=== PATIENT | female | born 1990 | race Asian ===

== ENCOUNTER 2016-03-27 12:49 | Outpatient (CLI) | payer BC ==
[~2016-03-27] VITALS: Ht 149.9 cm; Wt 53.5 kg
[2016-03-27 13:18] VITALS: BP 103/71; RESP 16; Ht 149.9 cm; Wt 53.5 kg
[2016-03-27 14:56] LABS: ADD UMIC YES; URINE BILIRUBIN (Dip) NEGATIVE (NEGATIVE); URINE BLOOD (Dip) 1+ (NEGATIVE); URINE COLOR LT. YELLOW (YELLOW); URINE GLUCOSE (Dip) NEGATIVE (NEGATIVE); URINE KETONES (Dip) NEGATIVE (NEGATIVE); URINE LEUKOCYTE ESTERASE (Dip) TRACE (NEGATIVE); URINE NITRITE (Dip) NEGATIVE (NEGATIVE); URINE TOTAL PROTEIN (Dip) NEGATIVE (NEGATIVE); URINE UROBILINOGEN (Dip) 0.2 E.U./dL (0.1-1.0)
--- NOTE | 2016-03-27 15:03 | PN ---
Date/Time of Note Date/Time of Note DATE: 03/27/16 TIME: 14:59 OB Subjective Subjective Subjective 25 Y.O AT 34W1D WITH PELVIC PAIN WITH UTERINE CONTRACION OB Objective Objective Objective EFM REACTIVE STRIP WITH OCC MILD U.C OB Assessment/Plan Reason for admission: labor Other Assessment: IUP 34W1D R/O PTL Other plan: U/A URINE CULTURE AND SENSITIVITIES ORAL HYDRATION IF NOT WORKING IV HYDRATION ERIN JACKSON MD Mar 27, 2016 15:03
[2016-03-27 15:09] LABS: BACTERIA,URINE FEW; SQUAMOUS EPITHELIAL CELL,UR MODERATE; URINE RBCS 0-2 /HPF ([, 0])
[2016-03-27] MEDS ORDERED: LACTATED RINGER'S 500 ML IV ONE (15:30)
[2016-03-27] MEDS ORDERED: CEFTRIAXONE 2 GM/50 ML (PMX) 50 ML IVPB ONE (15:30)
== END 2016-03-27 17:41 | disposition home or self-care (01) ==
LOC: OBT 12:49 → L-D 12:50 → OBT 17:41
PROVIDERS: ATTEND Obstetrics & Gynecology
DX: O60.03 Preterm labor without delivery, third trimester (principal); R10.2 Pelvic and perineal pain; Z3A.34 34 weeks gestation of pregnancy
CPT/HCPCS: 36415; 81001; 87086; 96360; 96366; J0696; J7120; Z7500; 81003; G0463

== ENCOUNTER 2016-04-02 12:58 | Outpatient (CLI) | payer BC ==
[~2016-04-02] VITALS: Ht 152.4 cm; Wt 56.1 kg
--- NOTE | 2016-04-02 13:45 | RADRPT ---
PROCEDURE: US OB. CLINICAL INDICATION: IUGR TECHNIQUE: Multiple sonographic images of the pelvis were obtained. Transabdominal imaging only w as performed. The images were reviewed on a PACS workstation. COMPARISON: No prior studies are available for comparison. FINDINGS: There is a single viable intrauterine gestation. Cardiac activity is present with 146 beats per min andres. There is a cephalic presentation. Measurements were made in order to determine age. The results are as follows: BPD = 8.30 cm HC = 30.77 cm AC = 30.08 cm FL = 6.32 cm Gestational age is 33 weeks 4 days and ALEKS is 05/17/2016 by ultrasound criteria. Gestational age is 35 weeks 0 days and ALEKS is 05/07/2016 by LMP. EFW = 2239 g +/- 336 g (14 %). The placenta is anterior. There is no evidence for an abruption or placenta previa. IMPRESSION: 1. Single live intrauterine gestation of approximately 33 weeks 4 days by ultrasound criteria. RPTAT: EE .Tony Joseph MD, Date Time Electronically viewed and signed by .Tony Joseph MD, on 04/02/2016 13:45 .R/
--- NOTE | 2016-04-02 13:46 | RADRPT ---
PROCEDURE: OB ultrasound for biophysical profile CLINICAL INDICATION: IUGR. Biophysical profile. . TECHNIQUE: Multiple sonographic images of the pelvis were obtained. Transabdominal view of the gr avid uterus are available for review. The images were reviewed on a PACS workstation. COMPARISON: None FINDINGS: breathing movement = 2/2 tone = 2/2 motion = 2/2 ZAKIYA = 2/2 ZAKIYA = 10.5 cm Single intrauterine gestation is identified in cephalic position. heart rate is 157 bpm. Plac enta is anterior without evidence for abruption or previa. IMPRESSION: 1. Single live intrauterine gestation. 2. Biophysical profile = 8. 3. ZAKIYA = 10.5 cm. RPTAT: EE .Tony Joseph MD, Date Time Electronically viewed and signed by .Tony Joseph MD, on 04/02/2016 13:46 .R/
[2016-04-02 13:49] VITALS: Ht 152.4 cm; Wt 56.1 kg
[2016-04-02] MEDS ORDERED: PRENAT PO (13:50)
--- NOTE | 2016-04-02 17:51 | CONS ---
DATE OF ADMISSION: 04/02/2016 DATE OF CONSULTATION: 04/02/2016 TYPE OF CONSULTATION: Triage consultation. HISTORY OF PRESENT ILLNESS: This patient is a 25-year-old 2, para 1, with EDC of 05/07/2016 , which makes her about 35 weeks today and she was sent in because of suspicion of IUGR [facility]. PHYSICAL EXAMINATION: GENERAL: She is a well-developed, well-nourished lady, around 35 weeks. EARS, NOSE AND THROAT: Normal. NECK: Normal. LUNGS: Clear. ABDOMEN: Soft. Fundus about 34 cm. She does have occasional contractions. heart tone at t his time is normal. Baby appears to be in vertex presentation. EXTREMITIES: Normal. No edema. Knee jerk reflexes are normal. PELVIC: About half an hour ago, her cervix was closed and uneffaced. Her ultrasound study reveale d that her biophysical profile was 8/8. Her ZAKIYA 10.5 cm. Her NST as I mentioned, was reactive. He r estimated weight was 2239 grams, which makes her 14th percentile. Her vital signs were norm al. Blood pressure 108/60, pulse rate was 85 and temperature was normal. With this finding, the pat ient will be discharged home to come back on a biweekly basis for further monitoring regarding her I UGR. Dictated By: LASHANDA TAPIA MD HF/NTS Conf#: [id number] DID#: [id number]
== END 2016-04-02 15:20 | disposition home or self-care (01) ==
LOC: L-D 12:58 → OBT 12:58
PROVIDERS: ATTEND Obstetrics & Gynecology
DX: O36.5913 Maternal care for other known or suspected poor fetal growth, first trimester, fetus 3 (principal); Z3A.35 35 weeks gestation of pregnancy
CPT/HCPCS: 76815; 76818; G0463

== ENCOUNTER 2016-04-06 11:38 | Outpatient (CLI) | payer BC ==
[~2016-04-06 11:38] MED LIST: PRENAT PO
[2016-04-06 11:56] VITALS: BP 92/58; PULSE 100; RESP 19
[2016-04-06 12:21] LABS: URINE BLOOD (Dip) POC Trace-lysed (NEGATIVE)
--- NOTE | 2016-04-06 12:21 | RADRPT ---
PROCEDURE: OB ultrasound for biophysical profile CLINICAL INDICATION: IUGR. TECHNIQUE: Multiple sonographic images of the pelvis were obtained. Transabdominal view of the gr avid uterus are available for review. The images were reviewed on a PACS workstation. COMPARISON: 04/02/2016. FINDINGS: breathing movement = 2/2 tone = 2/2 motion = 2/2 Quantitative amniotic fluid volume = 2/2 ZAKIYA = 11.3 cm Single live intrauterine with cardiac activity at 150 beats per minute. There is a anterior placenta without previa. IMPRESSION: 1. Single living intrauterine gestation in cephalic position. 2. Biophysical profile = 8/8. 3. ZAKIYA = 11.3 cm. RPTAT: [facility] Physician Tee Date Time Electronically viewed and signed by Physician Tee on 04/06/2016 12:20 /
--- NOTE | 2016-04-06 13:32 | PN ---
Date/Time of Note Date/Time of Note DATE: 04/06/16 TIME: 13:27 OB Subjective Subjective Subjective 25 y.o EDC 05/07/16 HERE FOR NATEPARTUM TEST FOR IUGR ALSO C/O LEAKING FLUID OB Objective Objective Objective EFM MINOR IRREGULAR UTERINE ACTIVITIES REACTIVE BPP 10/20 ZAKIYA 11.2 ROM PLUS NEG U/A SENT VE CLOSE LONG AND HIGH OB Assessment/Plan Other Assessment: IUP 35W5D R/O IUGR NO PROM Other plan: F/U IN 3-4 DAYS FOR NST BPP EFW SENT HOME WITH ROUTINE LABOR INSTRUCTIONS ERIN JACKSON MD Apr 06, 2016 13:31
[2016-04-06 13:42] LABS: ADD UMIC YES; URINE BILIRUBIN (Dip) NEGATIVE (NEGATIVE); URINE BLOOD (Dip) TRACE (NEGATIVE); URINE COLOR LT. YELLOW (YELLOW); URINE GLUCOSE (Dip) NEGATIVE (NEGATIVE); URINE KETONES (Dip) NEGATIVE (NEGATIVE); URINE LEUKOCYTE ESTERASE (Dip) 1+ (NEGATIVE); URINE NITRITE (Dip) NEGATIVE (NEGATIVE); URINE TOTAL PROTEIN (Dip) NEGATIVE (NEGATIVE); URINE UROBILINOGEN (Dip) 0.2 E.U./dL (0.1-1.0)
[2016-04-06 14:09] LABS: BACTERIA,URINE FEW; URINE RBCS 0-2 /HPF (0)
== END 2016-04-06 13:45 | disposition home or self-care (01) ==
LOC: OBT 11:38 → L-D 11:39 → OBT 13:45
PROVIDERS: ATTEND Obstetrics & Gynecology
DX: O47.03 False labor before 37 completed weeks of gestation, third trimester (principal); Z3A.35 35 weeks gestation of pregnancy
CPT/HCPCS: 76818; 81001; 84112; Z7500; 81003; G0463

== ENCOUNTER 2016-04-13 11:13 | Inpatient (IN) | payer BC ==
[~2016-04-13] VITALS: Ht 152.4 cm; Wt 54.5 kg
[2016-04-13] MEDS ORDERED: LACTATED RINGER'S 1,000 ML IV PRN (11:30)
[2016-04-13 11:53] VITALS: Ht 152.4 cm; Wt 54.5 kg
[2016-04-13] MEDS ORDERED: BUTORPHANOL 2 MG INJ IV PRN (12:00)
[2016-04-13] MEDS ORDERED: METHYLERGONOVINE 0.2 MG INJ IM PRN (12:00)
[2016-04-13] MEDS ORDERED: OXYTOCIN 30 UNITS/LR 500 ML IV SCH ×2 (12:00)
[2016-04-13] MEDS ORDERED: IBUPROFEN 600 MG TAB PO PRN (12:00)
[2016-04-13] MEDS ORDERED: LIDOCAINE 1% (MPF) 30 ML INJ INJ PRN (12:00)
[2016-04-13] MEDS ORDERED: AMPICILLIN 2 GM/NS (PMX) 100 ML IV ONE (12:00)
[2016-04-13] MEDS ORDERED: OXYTOCIN 30 UNITS/LR 500 ML IV PRN (12:00)
[2016-04-13] MEDS ORDERED: CARBOPROST 250 MCG INJ IM PRN (12:00)
[2016-04-13] MEDS ORDERED: MISOPROSTOL 200 MCG TAB PR PRN (12:00)
[2016-04-13 12:17] LABS: BASOPHILS % 0.4 % (0.0-2.0); EOSINOPHILS # 0.2 10^3/ul (0.0-0.5); EOSINOPHILS % 1.5 % (0.0-7.0); HEMATOCRIT 32.5 % (37.0-47.0); HEMOGLOBIN 10.7 g/dl (12.0-16.0); LYMPHOCYTES % 19.6 % (15.0-51.0); MEAN CORPUSCULAR HEMOGLOBIN 25.5 pg (29.0-33.0); MEAN CORPUSCULAR VOLUME 77.3 fl (82.0-101.0); MEAN PLATELET VOLUME 10.5 fl (7.4-10.4); MONOCYTE # 0.9 10^3/ul (0.3-0.9); MONOCYTES % 8.6 % (0.0-11.0); NEUTROPHIL # 7.2 10^3/ul (1.6-7.5); NEUTROPHILS % 69.9 % (39.0-77.0); PLATELET COUNT 202 10^3/UL (140-440); RED CELL DISTRIBUTION WIDTH 15.8 % (11.5-14.5); UNCORRECTED WBC 10.3 10^3/ul (4.8-10.8); WHITE BLOOD COUNT 10.3 10^3/ul (4.8-10.8)
[2016-04-13 12:18] LABS: CONDITION 1; LH ANALYZER COMMENTS 1
[2016-04-13] MEDS: LACTATED RINGER'S 1,000 ML IV SCH ×2 (12:21→19:45)
[2016-04-13 12:35] LABS: INR 0.87; PROTIME 11.8 Sec (12.2-14.2); PT RATIO 0.9
[2016-04-13] MEDS ORDERED: DINOPROSTONE 10 MG VAG SUPP VAG ONE (14:30)
[2016-04-13] MEDS: AMPICILLIN 1 GM/NS (PMX) 50 ML IV SCH ×3 (16:45→23:44)
--- NOTE | 2016-04-14 02:02 | HP ---
Date/Time of Note Date/Time of Note DATE: 04/14/16 TIME: 01:54 OB - History Hx of Present Free Text/Dictation 25 y.o at 36w6d was admitted for induction of labor for IUGR ,monitored closely with MFM who recommande d for delivery due to size was 4% with oligohydoamnios. admitted for induction of labor Chief Complaint: for induction Estimated Due Date: Apr 28, 2016 : 2 Para: 1 Spontaneous : 0 Therapeutic : 0 Care: Good Care Obstetrical Complications: Other (IUGR) Medical Complications: Musculoskeletal Past Family/Social History * Past Medical, Surgical, Family and Obstetric Histories reviewed from chart. Rubella: immune RPR/VDRL: Negative GBS Status: Negative OB Admission Exam Physical Exam HEENT: WNL Heart: Rhythm Normal Lungs: Clear, Equal Abdomen: WNL Extremities: Normal Reflexes: Normal Cervical Dilatation: Fingertip Effacement: 0% Station: -3 Membranes: Intact Amniotic Fluid: Unevaluable Heart Rate: 130's Accelerations: No Accelerations Decelerations: No Decelerations Varibility: Moderate Contractions on Admission: None Last 72 hours Lab Results CBC & BMP 04/13/16 11:30 OB Assessment/Plan Other Assessment: IUGR 36W6D OLIGOHYDRAMNIOS Plan: Induction Induction Method: per Misoprostol Protocol ERIN JACKSON MD Apr 14, 2016 02:01
--- NOTE | 2016-04-14 02:05 | LDN ---
Date/Time of Note Date/Time of Note DATE: 04/14/16 TIME: 02:02 Delivery Summary NORMAL VAGINAL DELIVERY RAPIDLY DELIVERED EVEN LABORIST MISSSED Placenta Delivered: Spontaneously Meconium: none Perineum intact?: No Perineal laceration: 2 Perineal laceration repair: REPAIRED Anesthesia type: Local Estimated blood loss: 250 Sponge & Needle done & correct: Yes All needle counts correct: Yes Any foreign bodies felt in the: No Problems: Infant Delivery Information Sex Sex: male Apgars 1 Minute: 8 5 Minute: 9 Suctioning Nose & mouth suctioned at alva: Yes Delee suction performed: No Umbilical Cord Umbilical cord with: 3 Vessels Cord presentations: no nuchal cord Cord Blood was obtained: Yes Mother & Baby Disposition Disposition Mom & Baby to Maternity; Good: Yes Mom transferred to: Other Baby to NICU: No () ERIN JACKSON MD Apr 14, 2016 02:05
[2016-04-14] MEDS ORDERED: METHYLERGONOVINE 0.2 MG INJ IM PRN (02:30)
[2016-04-14] MEDS ORDERED: OXYTOCIN 30 UNITS/LR 500 ML IV PRN (02:30)
[2016-04-14] MEDS ORDERED: WITCH HAZEL/GLYCERIN PAD PR PRN (02:30)
[2016-04-14] MEDS ORDERED: LANOLIN 7 GM TUBE TOP PRN (02:30)
[2016-04-14] MEDS ORDERED: OXYCODONE/ASPIRIN (4.88/325) TAB PO PRN ×2 (02:30)
[2016-04-14] MEDS ORDERED: MISOPROSTOL 200 MCG TAB PR PRN (02:30)
[2016-04-14] MEDS ORDERED: ZOLPIDEM 5 MG TAB PO PRN (02:30)
[2016-04-14] MEDS ORDERED: BENZOCAINE 20% 56 ML SPRAY TOP PRN (02:30)
[2016-04-14] MEDS ORDERED: CARBOPROST 250 MCG INJ IM PRN (02:30)
[2016-04-14 04:00] VITALS: BP_SYST 111; BP_SYST 121; BP_DIAS 71; PULSE 75; RESP 18
[2016-04-14] MEDS: IBUPROFEN 600 MG TAB PO SCH ×3 (05:50→18:18)
[2016-04-14 07:45] VITALS: BP 87/53; PULSE 63; RESP 18
[2016-04-14] MEDS: SENNA/DOCUSATE NA (8.6MG/50MG) TAB PO SCH ×2 (09:24→21:43)
[2016-04-14 12:45] VITALS: BP 92/59; PULSE 88; RESP 16
[2016-04-14 15:30] VITALS: BP 97/55; PULSE 85; RESP 16
[2016-04-14 20:00] VITALS: BP 102/66; PULSE 77; RESP 0
[2016-04-15] MEDS: IBUPROFEN 600 MG TAB PO SCH ×5 (00:58→23:23)
[2016-04-15 04:00] VITALS: BP 93/57; RESP 18
[2016-04-15 07:57] LABS: BASOPHILS % 0.3 % (0.0-2.0); EOSINOPHILS # 0.2 10^3/ul (0.0-0.5); EOSINOPHILS % 1.4 % (0.0-7.0); HEMATOCRIT 25.8 % (37.0-47.0); HEMOGLOBIN 8.3 g/dl (12.0-16.0); LYMPHOCYTES # 2.3 10^3/ul (0.8-2.9); LYMPHOCYTES % 17.9 % (15.0-51.0); MEAN CORPUSCULAR HEMOGLOBIN 25.1 pg (29.0-33.0); MEAN CORPUSCULAR HGB CONC 32.2 g/dl (32.0-37.0); MEAN CORPUSCULAR VOLUME 77.8 fl (82.0-101.0); MEAN PLATELET VOLUME 10.4 fl (7.4-10.4); MONOCYTES % 8.1 % (0.0-11.0); NEUTROPHIL # 9.1 10^3/ul (1.6-7.5); NEUTROPHILS % 72.3 % (39.0-77.0); PLATELET COUNT 166 10^3/UL (140-440); RED BLOOD COUNT 3.32 10^6/ul (4.20-5.40); UNCORRECTED WBC 12.6 10^3/ul (4.8-10.8); WHITE BLOOD COUNT 12.6 10^3/ul (4.8-10.8)
[2016-04-15 07:59] LABS: CONDITION 1; LH ANALYZER COMMENTS 1
[2016-04-15 08:00] VITALS: BP 105/75; PULSE 68; RESP 18
[2016-04-15] MEDS ORDERED: INFLUENZA VIRUS VACCINE 0.5 ML (DISPENSING) IM* ONE (09:00)
[2016-04-15] MEDS: SENNA/DOCUSATE NA (8.6MG/50MG) TAB PO SCH ×2 (09:10→22:11)
[2016-04-15 20:00] VITALS: BP 107/56; PULSE 67; RESP 18
--- NOTE | 2016-04-15 22:48 | PN ---
Date/Time of Note Date/Time of Note DATE: 04/15/16 TIME: 22:46 OB Subjective Subjective Subjective no c/o OB Objective Objective Objective vss afebrile fundus firm lochia minb ext neg OB Assessment/Plan Other Assessment: stable post #1 Other plan: d/s home in am ERIN JACKSON MD Apr 15, 2016 22:48
[2016-04-16 04:00] VITALS: BP 105/89; PULSE 68; RESP 18
[2016-04-16] MEDS: IBUPROFEN 600 MG TAB PO SCH ×2 (06:00→07:27)
[2016-04-16 07:30] VITALS: BP 107/62; PULSE 62; RESP 18
[2016-04-16] MEDS ORDERED: DIPHTH/TET/ACEL PERTUSS (ADULT) 0.5 ML VIAL IM* ONE (09:00)
[2016-04-16] MEDS: SENNA/DOCUSATE NA (8.6MG/50MG) TAB PO SCH (10:04)
--- NOTE | 2016-04-16 10:12 | PD.PPDC ---
TOOL GRINDER Discharge Instruction Diagnosis Final Diagnosis: s/p normal vaginal delivery Condition Patient Condition: Stable Diet Diet: Resume Regular Diet Activity/Restrictions Activity: May Shower Restrictions: No Lifting No Sexual Activity Nothing in the Vagina No [place] No Tampons, douche Follow-up Follow-up with Physician: 6, Week/Weeks Return to clinic for CARDIAC CATH TECHNICIAN Instructions: Fever greater than 101 Chills Worsening abdominal pain Excessive Vaginal Bleeding More than 2 pads per hour Unable to tolerate diet OB Instructions: Breast Tenderness Depression Blurried Vision Headache ERIN JACKSON MD Apr 16, 2016 10:12
--- NOTE | 2016-04-16 10:15 | DS ---
Date/Time of Note Date/Time of Note DATE: 04/16/16 TIME: 10:13 Obstetrical Discharge Record Final Diagnosis Final Diagnosis: Term delivered Vaginal Delivery Obstetrical Delivery: Spontaneous, Laceration, Repaired Complications Other (iugr) Augmentation: No Induction: Yes Condition on Discharge Physical Assessment Last Vitals: vss afebrile Voiding: Yes Bowel Movement: Yes Breast: Soft, non-tender Fundus: Firm Calf Tenderness: No Patient Condition: Stable ERIN JACKSON MD Apr 16, 2016 10:15
== END 2016-04-16 15:42 | disposition home or self-care (01) | DRG 775 ==
LOC: L-D 11:18 → PP1 04-14 03:45 → EDSTATUS 05-07 11:10
PROVIDERS: ADMIT Obstetrics & Gynecology; ATTEND Obstetrics & Gynecology
PROC: 3E033VJ Introduction of Other Hormone into Peripheral Vein, Percutaneous Approach (ICD-10-PCS; 2016-04-13)
PROC: 10E0XZZ Delivery of Products of Conception, External Approach (ICD-10-PCS; principal; 2016-04-14)
PROC: 0KQM0ZZ Repair Perineum Muscle, Open Approach (ICD-10-PCS; 2016-04-14)
PROC: 3E0234Z Introduction of Serum, Toxoid and Vaccine into Muscle, Percutaneous Approach (ICD-10-PCS; 2016-04-15)
DX: O36.5930 Maternal care for other known or suspected poor fetal growth, third trimester, not applicable or unspecified (principal); O41.03X0 Oligohydramnios, third trimester, not applicable or unspecified; O70.1 Second degree perineal laceration during delivery; Z3A.37 37 weeks gestation of pregnancy; Z37.0 Single live birth; Z23 Encounter for immunization
CPT/HCPCS: 85025; 85610; 85730; 86592; 86900; 86901; 87340; 90686; 90715; J0290; J2590; J7120

== ENCOUNTER 2017-02-25 12:25 | Day surgery (SDC) | payer BC ==
[2017-02-25] VITALS (11 sets, daily range): BP systolic 91–117; BP diastolic 50–66; PULSE 52–70; RESP 16–20; Ht 152.4 cm; Wt 43.8 kg
[~2017-02-25] VITALS: Ht 152.4 cm; Wt 43.8 kg
[~2017-02-25 12:25] MED LIST changes: +CEFAZOLIN 2 GM/50 ML (PMX) 50 ML IVPB SCH; +SOD CHLORIDE 0.9% 1,000 ML IV SCH
[2017-02-25] MEDS ORDERED: BUPIVACAINE 0.25% (MPF) 30 ML INJ ONE (15:24)
[2017-02-25] MEDS ORDERED: FENTAnyl 50 MCG/ML VIAL ONE (15:39)
[2017-02-25] MEDS ORDERED: LIDOCAINE 2% (SDV) 5 ML INJ ONE (15:52)
[2017-02-25] MEDS ORDERED: ROCURONIUM 50 MG INJ ONE (15:53)
[2017-02-25] MEDS ORDERED: PROPOFOL 20 ML ONE (15:53)
[2017-02-25] MEDS ORDERED: CEFAZOLIN 1 GM INJ ONE (15:53)
[2017-02-25] MEDS ORDERED: SUCCINYLCHOLINE CHLORIDE 100 MG/5 ML SYG IV ONE (15:53)
[2017-02-25] MEDS ORDERED: SUGAMMADEX SODIUM 200 MG/2 ML VIAL IV ONE (15:53)
[2017-02-25] MEDS ORDERED: ROPIVACAINE 0.2% 20 ML VIAL ONE (15:53)
--- NOTE | 2017-02-25 16:14 | OPR ---
Date/Time of Note Date/Time of Note DATE: 02/25/17 TIME: 16:12 Operative Report Procedure Date: Feb 25, 2017 Preoperative Diagnosis symptomatic gallstones Postoperative Diagnosis same Operation/Procedure Performed 1. laparoscopic cholecystectomy 2. therapeutic injection of subcutaneous local anesthesia Surgeon see signature line Pump Service Supervisor none Anesthesia Type: general Estimated Blood Loss: 10 - 50 ml's Transfusion none Specimen gallbladder Grafts/Implants none Complications none Pt Condition Post Procedure: stable Indications This is a 26-year-old female with substernal gallstones. She requests surgical excision of her gallbladder. Risks alternatives benefits percent were discussed the patient. Patient expressed understanding consents to the operation. Procedure Description Patient is taken to the OR and prepped and draped in usual sterile fashion. Surgical timeout was performed. IV antibiotics given. Infraumbilical transverse incision is made with a 15 blade. Dissection Carrs carried onto the fascia. The fascia was grasped with Monrovia's and divided with curved Mendez scissors. 0 Vicryl U stitch was placed into the fascia. Blueness on trocar was introduced. Pneumoperitoneum is established. Midepigastric 12 mm optical trocar was placed under direct visualization. Right upper quadrant upper flank 5 mm optical trochars were placed under direct visualization. Upon initial inspection there are some adhesions to the gallbladder which were taken down bluntly. The gallbladder was grasped by the fundus and retracted in the lateral and our direction. Careful dissection was performed with hook cautery from the lateral aspect allowing for identification of the cystic duct. The cystic duct and thickened tissues and divided with a 35 mm echelon vascular stapler. The staple line was reinforced with clips. The cystic artery was divided with 3 clips proximal and clip distal. The gallbladder was taken of the gallbladder bed. There is good hemostasis. The gallbladder was retrieved using Endo Catch bag. Ports removed under direct visualization. 0 Vicryl U stitch was tied down. Skin was closed with interrupted and running 4-0 Monocryl. Therapeutic subcutaneous local anesthesia was injected throughout the incision site. Dressings were applied. Beena DAVISON Feb 25, 2017 16:14
[2017-02-25] MEDS ORDERED: HYDROCODONE/APAP (5/325) TAB PO ONE (16:30)
[2017-02-25] MEDS ORDERED: ONDANSETRON 4 MG INJ ONE (16:49)
[2017-02-25] MEDS ORDERED: ONDANSETRON 4 MG INJ IV STA (16:51)
== END 2017-02-25 18:17 | disposition home or self-care (01) ==
LOC: SDS 12:25
PROVIDERS: ATTEND Surgery
DX: K80.10 Calculus of gallbladder with chronic cholecystitis without obstruction (principal)
CPT/HCPCS: 47562; 88304; J0690; J2405; J2795; J3010; Z7512; Z7610

== ENCOUNTER 2017-02-28 10:14 | Emergency (ER) | payer BC ==
[~2017-02-28] VITALS: Ht 160 cm; Wt 44.6 kg
[~2017-02-28 10:14] MED LIST changes: -CEFAZOLIN 2 GM/50 ML (PMX) 50 ML IVPB SCH; -SOD CHLORIDE 0.9% 1,000 ML IV SCH
[2017-02-28 10:16] VITALS: Ht 160 cm; Wt 44.6 kg
[2017-02-28] MEDS ORDERED: CEPH-443 PO (12:21)
--- NOTE | 2017-02-28 12:34 | ERD ---
ER Documentation Chief Complaint Chief Complaint bleeding from surgical site (cholecystectomy on 02/25/17) HPI This 26-year-old female presents with bleeding from a postoperative site. She had a cholecystectomy 3 days ago laparoscopically. She denies any fevers, vomiting, redness. Surgeon is Dr. Britt FINCH All systems reviewed and are negative except as per history of present illness. Medications Home Meds Active Scripts Cephalexin* (Keflex*) 500 Mg Capsule, 500 MG PO QID for 7 Days, CAP Prov:TOMAS MCCOY MD 02/28/17 Discontinued Reported Medications Multivit/Min/Fol Ac/Iron/Pren* ( S*) 1 Tab Tab, 1 TAB PO DAILY, TAB 04/02/16 Allergies Allergies: Coded Allergies: No Known Drug Allergies (Verified Allergy, Unknown, 02/25/17) PMhx/Soc History of Surgery: Yes (radha 02/25) Anesthesia Reaction: No Hx Neurological Disorder: No Hx Respiratory Disorders: No Hx Cardiac Disorders: No Hx Psychiatric Problems: No Hx Miscellaneous Medical Probl: No Hx Alcohol Use: No Hx Substance Use: No Hx Tobacco Use: No Smoking Status: Never smoker Physical Exam Vitals Vital Signs Date Time Temp Pulse Resp B/P Pulse Ox O2 Delivery O2 Flow Rate FiO2 02/28/17 10:16 98.5 74 18 98/59 98 Physical Exam Const: [] Head: Atraumatic Eyes: Normal Conjunctiva ENT: Normal External Ears, Nose and Mouth. Neck: Full range of motion..~ No meningismus. Resp: Clear to auscultation bilaterally Cardio: Regular rate and rhythm, no murmurs Abd: Soft, non tender, non distended. Normal bowel sounds. There are healing port scars is the scar port site underneath the umbilicus with some scant serosanguineous drainage and dried blood. There is no erythema, warmth. The other sites appear to be healing without complications. Skin: No petechiae or rashes Back: No midline or flank tenderness Ext: No cyanosis, or edema Neur: Awake and alert Psych: Normal Mood and Affect Procedures/MDM Wound was cleansed and Dermabond was reapplied as well as Steri-Strips. Patient presents with a postoperative likely small seroma or wound dehiscence without evidence of infection which appears significant, there is no evidence of deep abdominal tenderness to suggest abscess or additional postoperative complications. She will treated with Keflex empirically instructions to follow- up with surgeon as directed or scheduled. She should return for fevers, vomiting, worsening redness, pain currently worsening symptoms or primary care doctor Departure Diagnosis: Primary Impression: Seroma after procedure Condition: Stable Patient Instructions: Seroma, Postsurgical Additional Instructions: See surgeon as scheduled. Recheck for fevers, redness, recurrent symptoms, new or worsening symptoms. TOMAS MCCOY MD Feb 28, 2017 12:33
== END 2017-02-28 12:54 | disposition home or self-care (01) ==
LOC: FTE 10:14
DX: K91.872 Postprocedural seroma of a digestive system organ or structure following a digestive system procedure (principal)

== ENCOUNTER → 2017-03-10 | Emergency (ER) | payer BC ==
[~2017-03-10] VITALS: Wt 43.8 kg
[~2017-03-10] MED LIST changes: +CEPH-443 PO; -PRENAT PO
--- NOTE | 2017-03-10 14:11 | ERD ---
ER Documentation Chief Complaint Chief Complaint WANTS SURGERY SITE TO HAVE CHECK, HAD LEIF HAS ITC DALY AT THE SITE HPI Patient is a 26-year-old female with a history of a cholecystectomy on 02-25-17 , presents ED for concerns of itching around her port sites. She states that she did pull off "tape" I was placed previously. There is a patient may be speaking about Dermabond was placed at last visit. Patient denies any drainage or bleeding. Patient denies any fevers, chills, nausea, vomiting, swelling or redness. Patient states she did not complete the course of antibiotics she was given on 02-28-17 given that it caused her to feel dizzy. She has not followed up with her surgeon yet. Patient states she wants to make sure her wounds are okay given that she will be leaving for a trip out of the country in the next 2 days. Patient's surgeon is Dr. De La Torre. ROS All systems reviewed and are negative except as per history of present illness. Medications Home Meds Active Scripts Cephalexin* (Keflex*) 500 Mg Capsule, 500 MG PO QID for 7 Days, CAP Prov:TOMAS MCCOY MD 02/28/17 Allergies Allergies: Coded Allergies: No Known Drug Allergies (Verified Allergy, Unknown, 02/25/17) PMhx/Soc History of Surgery: Yes (leif 02/25) Anesthesia Reaction: No Hx Neurological Disorder: No Hx Respiratory Disorders: No Hx Cardiac Disorders: No Hx Psychiatric Problems: No Hx Miscellaneous Medical Probl: No Hx Alcohol Use: No Hx Substance Use: No Hx Tobacco Use: No Physical Exam Vitals Vital Signs Date Time Temp Pulse Resp B/P Pulse Ox O2 Delivery O2 Flow Rate FiO2 03/10/17 11:06 98.2 86 18 100/58 99 Physical Exam GENERAL: Well-developed, well-nourished female. Appears in no acute distress. Speaking in full sentences. HEAD: Normocephalic, atraumatic. EYES: Pupils are equally reactive bilaterally. EOMs grossly intact. No conjunctival erythema. NECK: Supple. No meningismus. Normal range of motion of the neck. LUNG: Clear to auscultation bilaterally. No rhonchi, wheezing, rales or coarse breath sounds. HEART: Regular rate and rhythm. No murmurs, rubs or gallops. ABDOMEN: Healing port scars with no evidence of infection. No erythema, no warmth, no swelling noted rounding port scars. Scabbing noted. Soft, nontender , and nondistended. Positive bowel sounds in all four quadrants. No rebound tenderness, no guarding. (-) McBurney's point tenderness. EXTREMITIES: Equal pulses bilaterally. No peripheral clubbing, cyanosis or edema. No unilateral leg swelling. NEUROLOGIC: Alert and oriented. Moving all four extremities without any difficulty. Normal speech. Steady gait. SKIN: Normal color. Warm and dry. No rashes or lesions. Procedures/MDM MEDICAL DECISION MAKING: This is a 26-year-old female presents for wound recheck. Patient had a cholecystectomy earlier this month and is concerned that her incisional sites are itching. Patient has no drainage, wheezing, redness, swelling or warmth of the incisional sites.. Vital signs were reviewed. Patient is afebrile. The wounds appears to be healing well with no concerns of acute infection at this time. No wound drainage or wound dehiscence noted. Postprocedural wound care was discussed with the patient. Plan to the patient that her itching is likely due to her skin scabbing. Patient was advised not to feel the scabs off. Patient will be given a prescription of Benadryl to help with the itching she has. Low suspicion for deep space infection, abscess, cellulitis or acute abdominal emergencies at this time. Patient was nontoxic, [id number] prior to discharge. PRESCRIPTIONS: Benadryl DISCHARGE: At this time, the patient is stable for discharge and outpatient management. Post-procedural wound care was discussed with the patient. I have instructed the patient to promptly return to the ER for any new or worsening symptoms including increasing pain, fever, warmth, redness or swelling. The patient and/ or family expressed understanding of and agreement with this plan. All questions were answered. Home care instructions were provided. Disclaimer: Inadvertent spelling and grammatical errors are likely due to EHR/ dictation software use and do not reflect on the overall quality of patient care. Also, please note that the electronic time recorded on this note does not necessarily reflect the actual time of the patient encounter. Departure Diagnosis: Primary Impression: Encounter for wound re-check Condition: Stable Patient Instructions: Post Op Wound Check, Pain Referrals: SKYLER RODRIGUEZ (PCP) Additional Instructions: Follow-up with your surgeon Dr. De La Torre on outpatient basis. Call your primary care doctor TOMORROW for an appointment during the next 1-2 days.See the doctor sooner or return here if your condition worsens before your appointment time. MIKEL EASLEY PA-C Mar 10, 2017 14:08
== END | disposition home or self-care (01) ==
LOC: FTE 11:02
DX: Z48.01 Encounter for change or removal of surgical wound dressing (principal)
CPT/HCPCS: 99281

== ENCOUNTER 2017-05-27 17:24 | Emergency (ER) | END 2017-05-27 21:58 | disposition home or self-care (01) ==